=== PATIENT | male | born 1960 | race Caucasian/White ===

== ENCOUNTER 2016-10-11 23:21 | Emergency (ER) | payer MEDICAID ==
[~2016-10-11] VITALS: Ht 182.9 cm; Wt 86.0 kg
[2016-10-11 23:40] VITALS: BP 109/67
== END 2016-10-12 | disposition left against medical advice (07) ==
LOC: ER 23:21
DX: G89.29 Other chronic pain (principal); M79.605 Pain in left leg; M79.604 Pain in right leg; F91.8 Other conduct disorders; K74.60 Unspecified cirrhosis of liver; G62.9 Polyneuropathy, unspecified; J43.9 Emphysema, unspecified; Z89.429 Acquired absence of other toe(s), unspecified side; F17.210 Nicotine dependence, cigarettes, uncomplicated
CPT/HCPCS: 99283

== ENCOUNTER 2016-10-14 20:11 | Emergency (ER) | payer MEDICAID ==
[~2016-10-14] VITALS: Ht 182.9 cm; Wt 79.0 kg
[2016-10-14] MEDS ORDERED: KETOROLAC 30MG/ML VIAL IM ONE (21:30)
[2016-10-14] MEDS ORDERED: LORAZEPAM 1MG TABLET PO ONE (22:15)
[2016-10-15 15:48] VITALS: BP 150/86
== END 2016-10-15 16:20 | disposition home or self-care (01) ==
LOC: ER 20:11
DX: M79.604 Pain in right leg (principal); M79.605 Pain in left leg; J43.9 Emphysema, unspecified; K70.30 Alcoholic cirrhosis of liver without ascites
CPT/HCPCS: 96372; 99283; J1885; Z7610